=== PATIENT | male | born 1955 | race Caucasian/White ===

== ENCOUNTER 2022-06-17 14:14 | Outpatient (CLI) | payer OTHER, SELFPAY ==
[2022-06-17 19:24] LABS: Basophils Percent Auto 0.3 % (0.2-1.2); Eosinophils Absolute Auto 0.1 K/mm3 (0-0.3); Eosinophils Percent Auto 1.2 % (0-4.4); Hematocrit 45.7 % (42.0-52.0); Immature Granulocyte Absolute 0.05 K/mm3 (0.00-0.031); Immature Granulocyte Percent A 0.6 % (0-0.5); Lymphocytes Absolute Auto 1.47 K/mm3 (0.9-3.2); Lymphocytes Percent Auto 16.4 % (18.3-44.2); Mean Corpuscular HGB Conc 32.8 g/dl (32-36); Mean Corpuscular Hemoglobin 29.5 pg (26-34); Mean Corpuscular Volume 89.8 fl (80-100); Mean Platelet Volume 10.1 fl (7.4-10.4); Monocytes Absolute Auto 0.7 K/mm3 (0.1-0.6); Neutrophils Absolute Auto 6.6 K/mm3 (1.3-6.7); Neutrophils Percent Auto 73.5 % (45.5-73.1); Platelet Count Result 276 k/mm3 (150-375); Red Blood Count 5.09 M/mm3 (4.6-6.20); Red Cell Distribution Width 13.9 % (11.5-14.5)
[2022-06-17 19:31] LABS: Alanine Aminotransferase 48 U/L (6-50); Albumin Level 4.7 g/dL (3.5-5.1); Alkaline Phosphatase 134 U/L (38-126); Anion Gap 14 mmol/L (8-16); Aspartate Amino Transferase 37 U/L (17-59); Bilirubin,Total 0.6 mg/dL (0.2-1.3); Blood Urea Nitrogen 16 mg/dL (9-20); Carbon Dioxide 32 mmol/L (22-30); Chloride 92 mmol/L (98-107); Cholesterol 177 mg/dL (0-200); Estimated Glomerular Filt Rate > 60; Glucose 94 mg/dL (65-110); HDL Direct 32 mg/dL; Potassium 4.2 mmol/L (3.4-5.0); Sodium 138 mmol/L (137-145); Triglycerides 336 mg/dL (<150)
[2022-06-17 19:42] LABS: LDL Cholesterol Direct 92 mg/dL
[2022-06-17 19:54] LABS: Prostate Specific Antigen 0.5 ng/mL (< OR = 4.0)
== END 2022-06-17 14:15 | disposition home or self-care (01) ==
PROVIDERS: PCP Family Medicine; Visit Provider Family Medicine
DX: Z12.5 Encounter for screening for malignant neoplasm of prostate (principal); E66.9 Obesity, unspecified; Z79.899 Other long term (current) drug therapy
CPT/HCPCS: 36415; 80053; 80061; 84153; 85025; G0103

== ENCOUNTER 2022-12-23 14:46 | Outpatient (CLI) | payer OTHER, SELFPAY ==
--- NOTE | ~2022-12-23 | XR_ITS ---
XR chest 2V 12/23/2022 15:05 Indication: Edema. Procedure: PA and lateral views are the chest Comparison: 2 view chest Findings: Bibasilar airspace disease. No significant effusion or pneumothorax. No edema. No acute oss eous abnormality. There are Downey rods partially visualized. Impression: 1: Bibasilar airspace disease which may represent atelectasis and/or pneumonia. Reviewed, dictated and finalized at location B. Impression: 1: Bibasilar airspace disease which may represent atelectasis and/or pneumonia.
[2022-12-23 18:44] LABS: NT Pro B Type Natriuretic Pept 57 pg/mL (19.9-100)
== END 2022-12-23 14:47 | disposition home or self-care (01) ==
PROVIDERS: PCP Family Medicine; Visit Provider Family Medicine
DX: R06.2 Wheezing (principal); R60.9 Edema, unspecified; R91.8 Other nonspecific abnormal finding of lung field
CPT/HCPCS: 36415; 71046; 83880

== ENCOUNTER 2022-12-30 09:58 | Outpatient (CLI) | payer OTHER, SELFPAY ==
[2022-12-30 19:45] LABS: Cholesterol 139 mg/dL (0-200); HDL Direct 33 mg/dL; Triglycerides 231 mg/dL (<150)
[2022-12-30 19:56] LABS: LDL Cholesterol Direct 72 mg/dL
[2022-12-30 20:02] LABS: Hemoglobin A1C 6.5 % (<5.7)
== END 2022-12-30 09:59 | disposition home or self-care (01) ==
PROVIDERS: PCP Family Medicine; Visit Provider Family Medicine
DX: R73.09 Other abnormal glucose (principal); E66.9 Obesity, unspecified
CPT/HCPCS: 36415; 80061; 83036

== ENCOUNTER 2023-01-13 10:11 | Outpatient (CLI) | payer OTHER, SELFPAY ==
--- NOTE | ~2023-01-13 | XR_ITS ---
EXAMINATION: XR chest 2V DATE: 01/13/2023 10:43 INDICATION: Wheezing TECHNIQUE: PA and lateral views of the chest were obtained. COMPARISON: Chest radiograph dated 12/23/2022 FINDINGS: Elevation the left hemidiaphragm. Unchanged focal pleural thickening at the lateral right lower lung zone and unchanged mild bibasilar opacities and would favor atelectasis/scarring over pneumonia. Mild perihilar bronchial wall thickening. No other airspace opacities, pleural effusion or pneumothorax. Cardiac silhouette is partially obscured but the visualized portion does not appear enlarged. Posteri or instrumented spinal fusion beginning in the lower thoracic spine and extending into the lumbar spi ne below the caudal margin of the [id number]. There is bilateral vertical esperanza with laminar hook fi xation. 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 IMPRESSION: 1. Chronic elevation of left hemidiaphragm and mild bibasilar atelectasis/scarring. 2. Mild perihilar bronchial wall thickening which could be due to bronchitis, reactive airway disease /asthma or minimal pulmonary edema. Reviewed, dictated and finalized at location B. IMPRESSION: 1. Chronic elevation of left hemidiaphragm and mild bibasilar atelectasis/scarr ing. 2. Mild perihilar bronchial wall thickening which could be due to bronchitis, r eactive airway disease/asthma or minimal pulmonary edema.
[2023-01-13 21:25] LABS: Hemoglobin A1C 6.3 % (<5.7)
== END 2023-01-13 10:12 | disposition home or self-care (01) ==
PROVIDERS: PCP Family Medicine; Visit Provider Nurse Practitioner
DX: R06.2 Wheezing (principal); R73.09 Other abnormal glucose; R91.8 Other nonspecific abnormal finding of lung field
CPT/HCPCS: 36415; 71046; 83036

== ENCOUNTER 2023-04-23 12:13 | Outpatient (CLI) | payer OTHER, SELFPAY ==
--- NOTE | 2023-04-23 12:38 | ECG_ITS ---
Measurements Intervals [place] Rate: 82 P: 22 IA: 171 QRS: -13 QRSD: 86 T: -1 QT: 375 QTc: 440 Interpretive Statements SINUS RHYTHM LOW QRS VOLTAGE IN PRECORDIAL LEADS [QRS DEFLECTION < 1.0 mV IN CHEST LEADS] INFERIOR MYOCARDIAL INFARCTION , PROBABLY OLD [40+ ms Q WAVE AND/OR ST/T ABNORMALITY IN II/aVF] NO PREVIOUS ECG AVAILABLE FOR COMPARISON Electronically Signed On 04-23-2023 14:28:16 CDT by Gagan Ariza M.D.
[2023-04-23 13:20] LABS: Basophils Percent Auto 0.4 % (0.2-1.2); Eosinophils Absolute Auto 0.1 K/mm3 (0-0.3); Eosinophils Percent Auto 0.9 % (0-4.4); Hematocrit 45.2 % (42.0-52.0); Hemoglobin 15.1 g/dL (14.0-18.0); Immature Granulocyte Absolute 0.02 K/mm3 (0.00-0.031); Immature Granulocyte Percent A 0.2 % (0-0.5); Lymphocytes Absolute Auto 1.54 K/mm3 (0.9-3.2); Lymphocytes Percent Auto 17.2 % (18.3-44.2); Mean Corpuscular HGB Conc 33.4 g/dl (32-36); Mean Corpuscular Hemoglobin 29.2 pg (26-34); Mean Corpuscular Volume 87.4 fl (80-100); Mean Platelet Volume 10.3 fl (7.4-10.4); Monocytes Absolute Auto 0.7 K/mm3 (0.1-0.6); Monocytes Percent Auto 7.7 % (2.6-8.5); Neutrophils Absolute Auto 6.6 K/mm3 (1.3-6.7); Neutrophils Percent Auto 73.6 % (45.5-73.1); Platelet Count Result 245 k/mm3 (150-375); Red Blood Count 5.17 M/mm3 (4.6-6.20); Red Cell Distribution Width 14.3 % (11.5-14.5); White Blood Count 8.9 K/mm3 (4.5-10.0)
[2023-04-23 13:22] LABS: Appearance Urine Clear (Clear); Bilirubin Urine Negative (Negative); Blood Urine Negative (Negative); Color Urine Yellow (Yellow); Glucose Urine UA Negative (Negative); Ketones Urine Negative (Negative); Leukocyte Esterase Ur Negative LEU/UL (Negative); Nitrate Urine Negative (Negative); Protein Urine Negative (Negative); Specific Grav Ur 1.012 (1.001-1.035); pH Urine 6.5 (5.0-9.0)
[2023-04-23 13:31] LABS: Anion Gap 6 mmol/L (8-16); Blood Urea Nitrogen 15 mg/dL (9-20); Calcium 9.6 mg/dL (8.4-10.2); Carbon Dioxide 33 mmol/L (22-30); Chloride 92 mmol/L (98-107); Estimated Glomerular Filt Rate > 60; Glucose 104 mg/dL (65-110); Potassium 3.8 mmol/L (3.4-5.0); Sodium 131 mmol/L (137-145)
[2023-04-23 13:34] LABS: Hemoglobin A1C 6.5 % (<5.7)
[2023-04-23 14:30] LABS: Add Urine Microscopic? NO
== END 2023-04-23 12:14 | disposition home or self-care (01) ==
PROVIDERS: PCP Family Medicine; Visit Provider Orthopaedic Surgery
DX: M17.11 Unilateral primary osteoarthritis, right knee (principal); E11.69 Type 2 diabetes mellitus with other specified complication; E78.5 Hyperlipidemia, unspecified; I10 Essential (primary) hypertension
CPT/HCPCS: 36415; 80048; 81003; 83036; 85025; 93005